=== PATIENT | female | born 1995 | race Hispanic/Latino ===

== ENCOUNTER 2022-01-06 21:13 | Emergency (ER) | payer MEDICAID ==
[~2022-01-06] VITALS: Ht 154.9 cm; Wt 76.2 kg
[2022-01-06 21:30] VITALS: BP 132/82
[2022-01-06] MEDS ORDERED: ACETAMINOPHEN 500 MG TABLET PO ONE (22:00)
[2022-01-06 22:18] LABS: APPEARANCE,URINE Cloudy (CLEAR); BILIRUBIN,URINE Negative (NEGATIVE); COLOR,URINE Orange (YELLOW); GLUCOSE, URINE (UA) Negative (NEGATIVE); KETONES,URINE Trace mg/dL (NEGATIVE); LEUKOCYTE ESTERASE ,URINE Trace (NEGATIVE); NITRATE,URINE Negative (NEGATIVE); OCCULT BLOOD,URINE Large (NEGATIVE); PROTEIN,URINE Trace mg/dL (NEGATIVE)
[2022-01-06 22:26] LABS: HCG,QUAL RESULT NEGATIVE (NEGATIVE)
[2022-01-06] MEDS ORDERED: ACETAMINOPHEN 500 MG TABLET ONE (22:28)
[2022-01-06 22:49] LABS: BACTERIA,URINE None Seen /HPF (None Seen); RBC,URINE TNTC /HPF (0-1)
== END 2022-01-07 00:10 | disposition home or self-care (01) ==
LOC: EDH 21:13
DX: S09.90XA Unspecified injury of head, initial encounter (principal); M54.2 Cervicalgia; R11.0 Nausea; F32.9 Major depressive disorder, single episode, unspecified; Z72.0 Tobacco use; W10.9XXA Fall (on) (from) unspecified stairs and steps, initial encounter; Y93.89 Activity, other specified; Y92.89 Other specified places as the place of occurrence of the external cause; Y99.8 Other external cause status
CPT/HCPCS: 70450; 72125; 81001; 81025